=== PATIENT | female | born 1985 | race African-American/Black ===

== ENCOUNTER 2017-01-23 12:04 | Emergency (ER) | payer SELFPAY ==
[2017-01-23] MEDS ORDERED: Sodium Chloride 0.9% 1,000 ML ONE ×2 (12:25→13:52)
[2017-01-23] MEDS ORDERED: Benzonatate 100 MG CAP ONE ×2 (12:25→12:32)
[2017-01-23] MEDS ORDERED: Ketorolac Tromethamine 30 MG/ML VIAL ONE (12:25)
--- NOTE | 2017-01-23 12:58 | RAD ---
PA AND LATERAL OF THE CHEST: INDICATION: Cough. IMPRESSION: No pneumonia. COMMENTS: No comparisons available. Lungs are clear. Cardiomediastinal silhouette is within normal limits. N o acute osseous abnormality is evident. POS: [facility]
[2017-01-23 13:10] LABS: ALT (SGPT) 27 U/L (8-55); AST (SGOT) 19 U/L (5-34); Albumin 4.3 g/dL (3.5-5.0); Alkaline Phosphatase 69 U/L (40-150); Anion Gap 13 mmol/L (10-20); BUN (Urea Nitrogen) 11 mg/dL (7.0-18.7); Bilirubin, Total 0.8 mg/dL (0.2-1.2); Calc. Creatinine Clearance 0 mL/min (70-130); Calcium 9.1 mg/dL (7.8-10.44); Carbon Dioxide 20 mmol/L (22-29); Chloride 109 mmol/L (98-107); Estimated GFR-MDRD Greater than 90; Globulin 3.7 g/dL (2.4-3.5); Glucose 102 mg/dL (70-105); Potassium 3.4 mmol/L (3.5-5.1); Sodium 139 mmol/L (136-145)
[2017-01-23 13:17] LABS: Hemoglobin 13.8 g/dL (12.0-16.0); Mean Corpuscular HGB CONC 30.9 g/dL (32.0-36.0); Mean Corpuscular Hemoglobin 28.1 pg (27.0-31.0); Mean Platelet Volume 9.9 fL (7.4-10.4); Platelet Count 203 thou/uL (130-400); RBC Distribution Width 11.3 % (11.5-14.5); Red Blood Cell (RBC) Count 4.91 mill/uL (4.20-5.40); White Blood Cell (WBC) Count 3.4 thou/uL (4.8-10.8)
[2017-01-23 13:18] LABS: Anisocytosis SLIGHT = 6-15 cells (100X) (0-5/hpf); Lymphocytes 25 % (21-51); MDiff Complete? YES; Monocytes 14 % (0-10); Neutrophil 61 % (42-75); PLT Morphology Comment Appears Adequate
== END 2017-01-23 14:55 | disposition home or self-care (01) ==
LOC: NAV ERS 12:04
DX: J06.9 Acute upper respiratory infection, unspecified (principal); E86.0 Dehydration
CPT/HCPCS: 36415; 71020; 80053; 85025; 96361; 96374; J1885; J7050